=== PATIENT | female | born 1960 | race Hispanic/Latino ===

== ENCOUNTER 2018-01-10 18:10 | Emergency (ER) | payer BC, SELFPAY ==
[2018-01-10 19:12] LABS: Absolute Lymphocytes (CBC) 2.3 K/uL (0.7-4.9); Absolute Monocytes 0.3 K/uL (0.1-1.3); Absolute Neutrophil 2.6 K/uL (1.8-8.0); Basophils % 0.7 % (0-1.3); Eosinophils % 1.1 % (0-4.4); Hematocrit 39.1 % (36.0-45.0); Lymphocytes % 43.5 % (15.3-44.8); MCH 29.2 pg (27.0-35.0); MCV 89.1 fL (80-100); MPV 8.7 fL (7.6-11.3); Monocytes % 5.2 % (3.3-12.3); RBC Red Blood Cell Count 4.38 M/uL (3.86-4.86)
[2018-01-10 19:24] LABS: Bicarbonate 27 mEq/L (21-31); Glucose Level 369 mg/dL (65-120); Lipase 96 U/L (22-51); Potassium 4.2 mEq/L (3.6-5.0); Sodium Level 134 mEq/L (135-145)
[2018-01-10 19:31] LABS: ALT/SGPT 27 IU/L (10-60); AST/SGOT 24 IU/L (10-42); Albumin 4.1 g/dL (3.2-5.5); Alkaline Phosphatase 68 IU/L (42-121); BUN Blood Urea Nitrogen 17 mg/dL (6-20); Bilirubin Direct 0.1 mg/dL (0-0.2); Bilirubin Total 0.5 mg/dL (0.3-1.2); Protein, Total 7.3 g/dL (6.0-8.3)
[2018-01-10] MEDS ORDERED: NA CHLORIDE 0.9% 1,000 ML ONE (20:14)
--- NOTE | 2018-01-10 20:27 | ER ---
Nurse's Notes [facility] Name: Vera Morales Age: 57 yrs Sex: Female : 1960 Arrival Date: 01/10/2018 Time: 18:13 Bed 8 Private MD: Diagnosis: Hyperglycemia, unspecified Presentation: 01/10 18:26 Presenting complaint: Patient states: High blood sugar reading at home. Transition of aj care: patient was not received from another setting of care. Onset of symptoms was January 10, 2018. Care prior to arrival: None. 18:26 Method Of Arrival: Ambulatory 18:26 Acuity: MORRIS 3 aj Triage Assessment: 18:28 General: Appears in no apparent distress. comfortable, Behavior is calm, cooperative, aj appropriate for age. Pain: Denies pain. Neuro: Level of Consciousness is awake, alert, obeys commands, Oriented to person, place, time, situation, Appropriate for age. Respiratory: Airway is patent Respiratory effort is even, unlabored, Respiratory pattern is regular, symmetrical. Derm: Skin is intact, is healthy with good turgor, Skin is pink, warm \T\ dry. normal. Historical: - Allergies: 18:28 PENICILLINS; aj - Home Meds: 18:28 Metformin Oral [Active]; Glipizide Oral [Active]; aj - PMHx: 18:28 Diabetes - NIDDM; - PSHx: 18:28 None; aj - Immunization history:: Adult Immunizations up to date. - Social history:: Smoking status: Patient/guardian denies using tobacco. Screenin:40 Abuse screen: Denies threats or abuse. Denies injuries from another. Nutritional hb screening: No deficits noted. Tuberculosis screening: No symptoms or risk factors identified. Fall Risk None identified. Assessment: 18:40 General: Appears in no apparent distress. Behavior is calm, cooperative. Pain: Denies hb pain. Neuro: Level of Consciousness is awake, alert, obeys commands, Oriented to person, place, time, situation. Cardiovascular: Capillary refill < 3 seconds Patient's skin is warm and dry. Respiratory: Airway is patent Respiratory effort is even, unlabored, Respiratory pattern is regular, symmetrical, Breath sounds are clear bilaterally. GI: No signs and/or symptoms were reported involving the gastrointestinal system. : No signs and/or symptoms were reported regarding the genitourinary system. EENT: No signs and/or symptoms were reported regarding the EENT system. Derm: No signs and/or symptoms reported regarding the dermatologic system. Musculoskeletal: No signs and/or symptoms reported regarding the musculoskeletal system. 19:45 General: Appears in no apparent distress. Behavior is calm, cooperative. Neuro: Level bb of Consciousness is awake, alert, obeys commands, Oriented to person, place, time, situation. Cardiovascular: No deficits noted. Respiratory: Respiratory effort is even, unlabored, Respiratory pattern is regular. GI: No signs and/or symptoms were reported involving the gastrointestinal system. Derm: Skin is pink, warm \T\ dry. Musculoskeletal: Circulation, motion, and sensation intact. 20:54 Reassessment: Patient and/or family updated on plan of care and expected duration. Pain bb level reassessed. Patient is alert, oriented x 3, equal unlabored respirations, skin warm/dry/pink. pt verbalized understanding of and agrees to plan of care discharge instructions given pt ambulated with steady gait to exit accompanied by spouse. Vital Signs: 18:28 BP 169 / 90; Pulse 78; Resp 19; Temp 98.6; Pulse Ox 97% on R/A; Weight 55.34 kg; Height aj 5 ft. 0 in. (152.40 cm); Pain 0/10; 20:05 BP 140 / 76; Pulse 77; Resp 18; Pulse Ox 96% on R/A; aa1 20:55 BP 149 / 77; Pulse 70; Resp 18 S; Temp 98.5(O); Pulse Ox 98% on R/A; Pain 0/10; bb 18:28 Body Mass Index 23.83 (55.34 kg, 152.40 cm) ED Course: 18:13 Patient arrived in ED. rg4 18:20 Matt Serrano NP is PHCP. pm1 18:20 Brandin Castro MD is Attending Physician. pm1 18:27 Triage completed. aj 18:28 Arm band placed on right wrist. Patient placed in an exam room, on a stretcher. aj 18:40 Patient has correct armband on for positive identification. Bed in low position. Call hb light in reach. Side rails up X 1. 18:40 Inserted saline lock: 20 gauge in right antecubital area, using aseptic technique. hb Blood collected. 19:16 Primary Nurse role handed off by Nettie Williamson RN hb 20:13 Marjorie Bueno, RN is Primary Nurse. bb 20:55 No provider procedures requiring assistance completed. IV discontinued, intact, bb bleeding controlled, No redness/swelling at site. Pressure dressing applied. Administered Medications: 19:45 Drug: NS 0.9% 1000 ml Route: IV; Rate: 1000 ml; Site: right antecubital; aa1 20:53 Follow up: IV Status: Completed infusion; IV Intake: 1000ml bb Point of Care Testing: Blood Glucose: 20:55 Blood Glucose: 278 mg/dL; bb Ranges: Intake: 20:53 IV: 1000ml; Total: 1000ml. bb Outcome: 20:26 Discharge ordered by MD. pm1 20:55 Discharged to home ambulatory, with family. bb 20:55 Condition: stable 20:55 Discharge instructions given to patient, Instructed on discharge instructions, follow up and referral plans. Demonstrated understanding of instructions, follow-up care. 20:56 Patient left the ED. bb Signatures: Mima Liu RN RN aa1 Melissa Terry RN RN aj Marjorie Bueno RN RN bb Matt Serrano, MANAGER OPERATIONS AND PROCUREMENT MANAGER OPERATIONS AND PROCUREMENT pm1 Nettie Willimason RN RN hb Adore Arvizu rg4 Corrections: (The following items were deleted from the chart) 19:17 18:27 Nettie Williamson RN is Primary Nurse. hb hb 19:17 19:16 Nettie Williamson RN is Primary Nurse. hb hb 19:17 19:16 Primary Nurse role handed off by Nettie Williamson RN hb hb
--- NOTE | 2018-01-10 20:27 | EDPHYS ---
Physician Documentation [facility] Name: Vera Morales Age: 57 yrs Sex: Female : 1960 Arrival Date: 01/10/2018 Time: 18:13 Bed 8 Private MD: KARI Physician Brandin Castro HPI: 01/10 19:00 This 57 yrs old Female presents to ER via Ambulatory with complaints of High pm1 Blood Sugar. 19:00 The patient or guardian reports hyperglycemia, High reading on finger stick. Onset: The pm1 symptoms/episode began/occurred today. Associated signs and symptoms: Pertinent positives: None. Pertinent negatives: diarrhea, nausea, vomiting, Recent illness. Current symptoms: In the emergency department the patient's symptoms None. The patient has not experienced similar symptoms in the past. The patient has not recently seen a physician. Patient without any complaints except for blood sugar reading "high" on machine. Patient currently taking glipizide and metformin for diabetes. Historical: - Allergies: 18:28 PENICILLINS; aj - Home Meds: 18:28 Metformin Oral [Active]; Glipizide Oral [Active]; aj - PMHx: 18:28 Diabetes - NIDDM; aj - PSHx: 18:28 None; aj - Immunization history:: Adult Immunizations up to date. - Social history:: Smoking status: Patient/guardian denies using tobacco. ROS: 19:00 Constitutional: Negative for fever, chills, and weight loss, Eyes: Negative for injury, pm1 pain, redness, and discharge, ENT: Negative for injury, pain, and discharge, Neck: Negative for injury, pain, and swelling, Cardiovascular: Negative for chest pain, palpitations, and edema, Respiratory: Negative for shortness of breath, cough, wheezing, and pleuritic chest pain, Abdomen/GI: Negative for abdominal pain, nausea, vomiting, diarrhea, and constipation, Back: Negative for injury and pain, : Negative for injury, bleeding, discharge, and swelling, MS/Extremity: Negative for injury and deformity, Skin: Negative for injury, rash, and discoloration, Neuro: Negative for headache, weakness, numbness, tingling, and seizure. 19:00 Endocrine: Negative for polydipsia, polyphagia, polyuria. Exam: 19:00 Constitutional: This is a well developed, well nourished patient who is awake, alert, pm1 and in no acute distress. Head/Face: Normocephalic, atraumatic. Eyes: Pupils equal round and reactive to light, extra-ocular motions intact. Lids and lashes normal. Conjunctiva and sclera are non-icteric and not injected. Cornea within normal limits. Periorbital areas with no swelling, redness, or edema. ENT: Nares patent. No nasal discharge, no septal abnormalities noted. Tympanic membranes are normal and external auditory canals are clear. Oropharynx with no redness, swelling, or masses, exudates, or evidence of obstruction, uvula midline. Mucous membranes moist. Neck: Trachea midline, no thyromegaly or masses palpated, and no cervical lymphadenopathy. Supple, full range of motion without nuchal rigidity, or vertebral point tenderness. No Meningismus. Chest/axilla: Normal chest wall appearance and motion. Nontender with no deformity. No lesions are appreciated. Cardiovascular: Regular rate and rhythm with a normal S1 and S2. No gallops, murmurs, or rubs. Normal PMI, no JVD. No pulse deficits. Respiratory: Lungs have equal breath sounds bilaterally, clear to auscultation and percussion. No rales, rhonchi or wheezes noted. No increased work of breathing, no retractions or nasal flaring. Abdomen/GI: Soft, non-tender, with normal bowel sounds. No distension or tympany. No guarding or rebound. No evidence of tenderness throughout. Back: No spinal tenderness. No costovertebral tenderness. Full range of motion. Skin: Warm, dry with normal turgor. Normal color with no rashes, no lesions, and no evidence of cellulitis. MS/ Extremity: Pulses equal, no cyanosis. Neurovascular intact. Full, normal range of motion. 19:00 Neuro: Orientation: is normal, Motor: is normal, moves all fours, Sensation: is normal, no obvious gross deficits. Vital Signs: 18:28 BP 169 / 90; Pulse 78; Resp 19; Temp 98.6; Pulse Ox 97% on R/A; Weight 55.34 kg; Height aj 5 ft. 0 in. (152.40 cm); Pain 0/10; 20:05 BP 140 / 76; Pulse 77; Resp 18; Pulse Ox 96% on R/A; aa1 20:55 BP 149 / 77; Pulse 70; Resp 18 S; Temp 98.5(O); Pulse Ox 98% on R/A; Pain 0/10; bb 18:28 Body Mass Index 23.83 (55.34 kg, 152.40 cm) aj MDM: 18:20 Patient medically screened. pm1 20:25 Data reviewed: vital signs. Data interpreted: Pulse oximetry: on room air is 96 %. pm1 Interpretation: normal. Counseling: I had a detailed discussion with the patient and/or guardian regarding: the historical points, exam findings, and any diagnostic results supporting the discharge/admit diagnosis, lab results, the need for outpatient follow up, to return to the emergency department if symptoms worsen or persist or if there are any questions or concerns that arise at home. 01/10 18:27 Order name: Basic Metabolic Panel; Complete Time: 19:58 pm1 01/10 18:27 Order name: CBC with Diff; Complete Time: 19:28 pm1 01/10 18:27 Order name: Hepatic Function; Complete Time: 19:58 pm1 01/10 18:27 Order name: Lipase; Complete Time: 19:58 pm1 01/10 18:31 Order name: Glucose, Ancillary Testing; Complete Time: 19:28 EDMS 01/10 18:27 Order name: IV Saline Lock; Complete Time: 19:04 pm1 01/10 18:27 Order name: Labs collected and sent; Complete Time: 19:04 pm1 01/10 18:27 Order name: Fingerstick Glucose; Complete Time: 19:04 pm1 Administered Medications: 19:45 Drug: NS 0.9% 1000 ml Route: IV; Rate: 1000 ml; Site: right antecubital; aa1 20:53 Follow up: IV Status: Completed infusion; IV Intake: 1000ml bb Point of Care Testing: Blood Glucose: 20:55 Blood Glucose: 278 mg/dL; bb Ranges: Critical Glucose Levels:Adult <50 mg/dl or >400 mg/dl <40 mg/dl or >180 mg/dl Disposition: 01/11 07:36 Co-signature as Attending Physician, Brandin Castro MD I agree with the assessment and brad plan of care. Disposition: 01/10/18 20:26 Discharged to Home. Impression: Hyperglycemia, unspecified. - Condition is Stable. - Discharge Instructions: Hyperglycemia, Blood Glucose Monitoring, Adult. - Medication Reconciliation Form, Thank You Letter form. - Follow up: Emergency Department; When: As needed; Reason: Worsening of condition. Follow up: Private Physician; When: 2 - 3 days; Reason: Recheck today's complaints, Continuance of care, Re-evaluation by your physician. - Problem is new. - Symptoms have improved. Signatures: Dispatcher [employer] EDMima Collins RN RN aaMelissa Wilder RN RN aj Anderson, Corey, MD MD cha Ballard, Brenda, RN RN Matt Vitale, PAINTING MANAGER PAINTING MANAGER pm1 Corrections: (The following items were deleted from the chart) 01/10 20:53 18:27 Urine Test ordered. pm1 bb 20:54 18:27 Urine Dipstick-Ancillary ordered. pm1 bb
== END 2018-01-10 20:56 | disposition home or self-care (01) ==
LOC: ER 18:10
DX: E11.65 Type 2 diabetes mellitus with hyperglycemia (principal); Z88.0 Allergy status to penicillin
CPT/HCPCS: 36415; 80048; 80076; 82962; 83690; 85025; 96360; 99284; J7030